=== PATIENT | male | born 1965 | race Caucasian/White ===

== ENCOUNTER 2021-06-16 05:26 | Inpatient (IN) | payer MEDICARE, MEDICAID ==
[~2021-06-16] VITALS: Ht 170.2 cm; Wt 51.3 kg
--- NOTE | 2021-06-16 05:43 | NUR ---
HPI: Pt brought in from [facility] in [place] for oral complications. Pt presented due to sore throat, increasing oral swelling x3 days. Pt able to continue to manage secretions and airway. However, tongue very edematous, difficulty swallowing. Painful, hoarse voice, difficulty talking. Pain concentrated to R side of throat. Exacerbating factors including swallowing, talking, drinking fluids. 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 Records indicate that pt was treated at [facility] w/ 8mg total IV Morphine, 4mg Zofran, 1L NSS Bolus, and 3GM Unasyn. CT scan showed Sialolithiasis w/ submandibular exophytic extension, dx w/ obstructing underneath tongue stones obstructing the lacrimal gland. WBC = 13.4 (concerns for bacterial infection), Lactic 1.3, H&H 15.6/44.2%. COVID negative, FLU Negative. Assessment: Pt alert and oriented x4, GCS 15, able to make needs known. RAKA assessed. Maintaining airway and secretions, RA sats >90%. Pt afebrile upon arrival, not tachycardic. Oral swelling noted, tongue swollen, difficulty annunciating words and phrases. 20G LAC estbalished at prior facility. Pt provided with call angelo, on monitor, denies further needs at this time.
--- NOTE | 2021-06-16 06:49 | NUR ---
Report to BRAYAN Dougherty no further questions at this time.
--- NOTE | 2021-06-16 07:03 | NUR ---
PT resting in bed, call light in reach.
[2021-06-16] MEDS ORDERED: DEXAMETHASONE 4 MG/ML, 1ML IVPush ONE (07:30)
[2021-06-16] MEDS ORDERED: DEXAMETHASONE 4 MG/ML, 1ML ONE ×2 (07:33→09:33)
--- NOTE | 2021-06-16 07:36 | NUR ---
ERMD AT BEDSIDE TO DISCUSS POC.
[2021-06-16 07:53] LABS: BASOPHILS % (AUTO) 1 % (0-1); EOSINOPHILS % (AUTO) 1 % (1-7); LYMPHOCYTES % (AUTO) 24 % (22-44); MEAN CORPUSCULAR HEMOGLOBIN 30.6 pg (27.5-34.5); MEAN CORPUSCULAR HGB CONC 33.9 g/dL (33.2-36.2); MEAN PLATELET VOLUME 7.7 fL (7.4-10.4); MONOCYTES % (AUTO) 10 % (2-9); NEUTROPHILS % (AUTO) 64 % (42-75); PLATELET COUNT 321 x10^3/uL (130-400); RED BLOOD COUNT 4.79 x10^6/uL (4.38-5.82); RED CELL DISTRIBUTION WIDTH 15.2 % (9.4-14.8)
[2021-06-16] MEDS ORDERED: PLEASE ENTER ALLERGIES MC SCH (08:00)
[2021-06-16] MEDS ORDERED: AMPICILLIN/SULBACTAM 3 GM in SODIUM CHLORIDE 0.9% 100 ML IV ONE (08:00)
[2021-06-16 08:05] LABS: ANION GAP 7 mmol/L (5-15); CALCIUM 8.8 mg/dL (8.5-10.1); CHLORIDE 107 mmol/L (98-107); CREATININE 0.83 mg/dL (0.7-1.3)
[2021-06-16] MEDS ORDERED: LIDOCAINE JELLY 2%, 30GM TP ONE (08:30)
[2021-06-16] MEDS ORDERED: LIDOCAINE 4% TOPICAL SOLUTION 50 ML TP ONE (08:30)
[2021-06-16] MEDS ORDERED: LIDOCAINE GEL 2%, 5ML ONE ×2 (08:38→08:45)
[2021-06-16] MEDS ORDERED: LIDOCAINE-MPF 1%, 5ML ONE (08:38)
[2021-06-16] MEDS ORDERED: LIDOCAINE 2%,20 ML JEL.PF.APP MM ONE (08:41)
[2021-06-16] MEDS ORDERED: SODIUM CHLORIDE 0.9% 1,000 ML IV SCH (09:00)
[2021-06-16] MEDS ORDERED: ONDANSETRON 2MG/ML, 2ML IVPush PRN (09:00)
[2021-06-16] MEDS ORDERED: LABETALOL 5MG/ML, 20ML IVPush PRN (09:00)
--- NOTE | 2021-06-16 09:01 | NUR ---
Report to SECURITIES AND REAL ESTATE DIRECTOR. PT transported to OR
[2021-06-16] MEDS ORDERED: MIDAZOLAM 1 MG/ML, 2ML ONE (09:06)
[2021-06-16] MEDS ORDERED: FENTANYL PF 250 MCG/5ML ONE (09:07)
[2021-06-16] MEDS ORDERED: LIDOCAINE/PF 1%, 30ML ONE (09:07)
[2021-06-16] MEDS ORDERED: EPINEPHRINE 1 MG/ML, 1ML ONE (09:07)
[2021-06-16] MEDS ORDERED: PROPOFOL 10 MG/ML, 20ML ONE (09:37)
[2021-06-16] MEDS ORDERED: EPHEDRINE 50 MG/ML, 1ML ONE (09:38)
[2021-06-16] MEDS ORDERED: PHENYLEPHRINE 10 MG/ML ONE (09:40)
[2021-06-16] MEDS ORDERED: PROPOFOL 100 ML IV ONE (10:12)
[2021-06-16] MEDS: DEXAMETHASONE 4 MG/ML, 1ML IVPush SCH ×3 (11:29→23:37)
[2021-06-16] MEDS: AMPICILLIN/SULBACTAM 3 GM in SODIUM CHLORIDE 0.9% 100 ML IV SCH ×2 (11:48→17:37)
[2021-06-16] MEDS: PROPOFOL 100 ML IV PRN ×3 (13:21→21:37)
[2021-06-16] MEDS ORDERED: LACTATED RINGERS 1,000 ML IVBOLUS ONE (14:30)
[2021-06-16] MEDS ORDERED: POTASSIUM CHLORIDE 40 MEQ in SODIUM CHLORIDE 0.9% 500 ML IV ONE (19:30)
[2021-06-16] MEDS ORDERED: HEPARIN 25,000 UNITS/250ML PMX 250 ML IV PRN (19:30)
[2021-06-16] MEDS ORDERED: HEPARIN 5,000 UNITS/ML, 1ML IV ONE (19:30)
[2021-06-16] MEDS ORDERED: HEPARIN 5,000 UNITS/ML, 1ML IV PRN (19:30)
[2021-06-16 19:31] VITALS: BP 108/55
[2021-06-16] MEDS ORDERED: HEPARIN wt. based STROKE protocol MC PRN (20:00)
[2021-06-16] MEDS: HEPARIN 25,000 UNITS/250ML PMX 250 ML IV PRN (20:08)
[2021-06-16] MEDS: SODIUM CHLORIDE 0.9% 1,000 ML IV SCH (20:36)
[2021-06-17] MEDS: AMPICILLIN/SULBACTAM 3 GM in SODIUM CHLORIDE 0.9% 100 ML IV SCH ×6 (00:10→23:29)
[2021-06-17 04:14] LABS: BASOPHILS % (AUTO) 0 % (0-1); EOSINOPHILS % (AUTO) 0 % (1-7); LYMPHOCYTES % (AUTO) 13 % (22-44); MEAN CORPUSCULAR HEMOGLOBIN 30.8 pg (27.5-34.5); MEAN CORPUSCULAR HGB CONC 33.7 g/dL (33.2-36.2); MEAN PLATELET VOLUME 7.9 fL (7.4-10.4); MONOCYTES % (AUTO) 5 % (2-9); NEUTROPHILS % (AUTO) 82 % (42-75); PLATELET COUNT 294 x10^3/uL (130-400); RED BLOOD COUNT 3.85 x10^6/uL (4.38-5.82); RED CELL DISTRIBUTION WIDTH 15.4 % (9.4-14.8)
[2021-06-17 04:27] LABS: ANION GAP 4 mmol/L (5-15); CALCIUM 7.9 mg/dL (8.5-10.1); CHLORIDE 114 mmol/L (98-107)
[2021-06-17 04:32] LABS: ALANINE AMINOTRANSFERASE 17 U/L (12-78); ALKALINE PHOSPHATASE 89 U/L (45-117); BILIRUBIN,TOTAL 0.2 mg/dL (0.2-1.0); CREATININE 0.63 mg/dL (0.7-1.3); TOTAL PROTEIN 6.2 g/dL (6.4-8.2)
[2021-06-17] MEDS: PROPOFOL 100 ML IV PRN ×4 (05:08→22:45)
[2021-06-17] MEDS: DEXAMETHASONE 4 MG/ML, 1ML IVPush SCH ×4 (05:14→22:26)
[2021-06-17] MEDS: PANTOPRAZOLE 40 MG IV IVPush SCH (07:58)
[2021-06-17] MEDS ORDERED: SODIUM CHLORIDE 0.9% 1,000 ML IV SCH (09:00)
[2021-06-17] MEDS: SODIUM CHLORIDE 0.9% 1,000 ML IV SCH ×2 (09:54→17:52)
[2021-06-17] MEDS ORDERED: SCOPOLAMINE 1MG PATCH TD ONE (11:30)
[2021-06-17] MEDS ORDERED: UMEC62.5 INH (16:35)
[2021-06-17] MEDS ORDERED: ASPI81TA45 PO (16:35)
[2021-06-17] MEDS ORDERED: DULO60CA7 PO (16:35)
[2021-06-17] MEDS ORDERED: EMTR1TAB13 PO (16:35)
[2021-06-17] MEDS ORDERED: CLOP75TA PO (16:35)
[2021-06-17] MEDS ORDERED: LIDO5CRE3 TP (16:35)
[2021-06-17] MEDS ORDERED: MORP30TA81 PO (16:35)
[2021-06-17] MEDS ORDERED: DOCU-131 PO (16:35)
[2021-06-17] MEDS ORDERED: RALT600T PO (16:35)
[2021-06-17] MEDS ORDERED: ATOR-2 PO (16:35)
[2021-06-17] MEDS ORDERED: HYDR-3248 PO (16:35)
[2021-06-17] MEDS ORDERED: APIX5TAB PO (16:35)
[2021-06-17] MEDS ORDERED: PREG200C PO (16:35)
[2021-06-17] MEDS ORDERED: GLYCOPYRROLATE 0.2MG/1ML, 5ML IVPush ONE (21:30)
[2021-06-17] MEDS: morphine SULFATE 10 MG/ML, 1ML IVPush PRN (22:26)
[2021-06-17] MEDS: HEPARIN 25,000 UNITS/250ML PMX 250 ML IV PRN (23:25)
[2021-06-18] MEDS: GLYCOPYRROLATE 0.2MG/1ML, 5ML IVPush PRN ×3 (00:51→21:19)
[2021-06-18] MEDS: SODIUM CHLORIDE 0.9% 1,000 ML IV SCH ×3 (02:12→19:37)
[2021-06-18] MEDS: PROPOFOL 100 ML IV PRN ×4 (04:46→21:58)
[2021-06-18] MEDS: DEXAMETHASONE 4 MG/ML, 1ML IVPush SCH ×4 (04:50→23:36)
[2021-06-18] MEDS: AMPICILLIN/SULBACTAM 3 GM in SODIUM CHLORIDE 0.9% 100 ML IV SCH ×4 (05:42→23:37)
[2021-06-18 05:53] LABS: BASOPHILS % (AUTO) 0 % (0-1); EOSINOPHILS % (AUTO) 0 % (1-7); LYMPHOCYTES % (AUTO) 15 % (22-44); MEAN CORPUSCULAR HEMOGLOBIN 30.9 pg (27.5-34.5); MEAN CORPUSCULAR HGB CONC 33.8 g/dL (33.2-36.2); MEAN PLATELET VOLUME 8.5 fL (7.4-10.4); MONOCYTES % (AUTO) 5 % (2-9); NEUTROPHILS % (AUTO) 80 % (42-75); PLATELET COUNT 319 x10^3/uL (130-400); RED CELL DISTRIBUTION WIDTH 15.7 % (9.4-14.8)
[2021-06-18 05:58] LABS: ANION GAP 6 mmol/L (5-15); CALCIUM 7.5 mg/dL (8.5-10.1); CHLORIDE 115 mmol/L (98-107)
[2021-06-18 06:00] LABS: CREATININE 0.59 mg/dL (0.7-1.3)
[2021-06-18] MEDS: PANTOPRAZOLE 40 MG IV IVPush SCH (06:39)
[2021-06-18] MEDS ORDERED: ONDANSETRON 2MG/ML, 2ML IVPush PRN (08:00)
[2021-06-18] MEDS ORDERED: morphine SULFATE 10 MG/ML, 1ML IVPush PRN (08:00)
[2021-06-18] MEDS ORDERED: FENTANYL PF 100 MCG/2ML IV PRN (08:00)
[2021-06-18] MEDS ORDERED: MEPERIDINE/PF 25MG/0.5ML IVPush PRN (08:00)
[2021-06-18] MEDS ORDERED: HYDROmorphone 1 MG/ML, 1ML INJ IVPush PRN (08:00)
[2021-06-18] MEDS ORDERED: PROMETHAZINE 25 MG/ML, 1ML IVPush PRN (08:00)
[2021-06-18] MEDS ORDERED: MIDAZOLAM 1 MG/ML, 2ML ONE ×2 (08:53→09:42)
[2021-06-18] MEDS ORDERED: FENTANYL PF 100 MCG/2ML ONE (08:53)
[2021-06-18] MEDS ORDERED: EPINEPHRINE 1 MG/ML, 1ML ONE (08:59)
[2021-06-18] MEDS ORDERED: LIDOCAINE/PF 1%, 30ML ONE (08:59)
[2021-06-18] MEDS: morphine SULFATE 10 MG/ML, 1ML IVPush PRN (19:46)
[2021-06-19] MEDS: GLYCOPYRROLATE 0.2MG/1ML, 5ML IVPush PRN ×3 (01:01→15:10)
[2021-06-19] MEDS: morphine SULFATE 10 MG/ML, 1ML IVPush PRN ×2 (01:06→07:31)
[2021-06-19] MEDS: SODIUM CHLORIDE 0.9% 1,000 ML IV SCH (04:04)
[2021-06-19] MEDS: PROPOFOL 100 ML IV PRN (04:04)
[2021-06-19] MEDS: PANTOPRAZOLE 40 MG IV IVPush SCH (05:27)
[2021-06-19] MEDS: AMPICILLIN/SULBACTAM 3 GM in SODIUM CHLORIDE 0.9% 100 ML IV SCH ×4 (05:27→23:38)
[2021-06-19] MEDS: DEXAMETHASONE 4 MG/ML, 1ML IVPush SCH ×4 (05:27→23:38)
[2021-06-19] MEDS: HEPARIN 25,000 UNITS/250ML PMX 250 ML IV PRN (06:19)
[2021-06-19 06:29] LABS: BASOPHILS % (AUTO) 0 % (0-1); EOSINOPHILS % (AUTO) 0 % (1-7); LYMPHOCYTES % (AUTO) 24 % (22-44); MEAN CORPUSCULAR HEMOGLOBIN 31.3 pg (27.5-34.5); MEAN CORPUSCULAR HGB CONC 34.3 g/dL (33.2-36.2); MEAN PLATELET VOLUME 8.4 fL (7.4-10.4); MONOCYTES % (AUTO) 9 % (2-9); NEUTROPHILS % (AUTO) 67 % (42-75); PLATELET COUNT 310 x10^3/uL (130-400); RED BLOOD COUNT 3.52 x10^6/uL (4.38-5.82); RED CELL DISTRIBUTION WIDTH 15.8 % (9.4-14.8)
[2021-06-19 06:45] LABS: ANION GAP 6 mmol/L (5-15); CALCIUM 7.8 mg/dL (8.5-10.1); CHLORIDE 115 mmol/L (98-107)
[2021-06-19 06:48] LABS: CREATININE 0.56 mg/dL (0.7-1.3)
[2021-06-19] MEDS: OXYcodone IR 5MG TABLET PO PRN (20:57)
[2021-06-20] MEDS: GLYCOPYRROLATE 0.2MG/1ML, 5ML IVPush PRN ×2 (01:11→05:31)
[2021-06-20 03:26] LABS: BASOPHILS % (AUTO) 0 % (0-1); EOSINOPHILS % (AUTO) 0 % (1-7); LYMPHOCYTES % (AUTO) 25 % (22-44); MEAN CORPUSCULAR HEMOGLOBIN 31.4 pg (27.5-34.5); MEAN CORPUSCULAR HGB CONC 34.2 g/dL (33.2-36.2); MEAN PLATELET VOLUME 8.3 fL (7.4-10.4); MONOCYTES % (AUTO) 7 % (2-9); NEUTROPHILS % (AUTO) 68 % (42-75); PLATELET COUNT 345 x10^3/uL (130-400); RED BLOOD COUNT 3.67 x10^6/uL (4.38-5.82); RED CELL DISTRIBUTION WIDTH 15.5 % (9.4-14.8)
[2021-06-20 03:34] LABS: ANION GAP 4 mmol/L (5-15); CALCIUM 8.2 mg/dL (8.5-10.1); CHLORIDE 112 mmol/L (98-107); CREATININE 0.69 mg/dL (0.7-1.3)
[2021-06-20] MEDS: DEXAMETHASONE 4 MG/ML, 1ML IVPush SCH ×2 (05:31→11:55)
[2021-06-20] MEDS: AMPICILLIN/SULBACTAM 3 GM in SODIUM CHLORIDE 0.9% 100 ML IV SCH ×2 (05:31→11:55)
[2021-06-20] MEDS ORDERED: BISACODYL 10 MG SUPP PR PRN (09:00)
[2021-06-20] MEDS ORDERED: LACTULOSE 20 GM/30 ML UDC PO PRN (09:00)
[2021-06-20] MEDS ORDERED: AMIODARONE 200 MG TABLET PO SCH (09:00)
[2021-06-20 09:33] LABS: CHOL/HDL RATIO 3.5; LDL/HDL RATIO 1.8 (0.5-3.0)
[2021-06-20] MEDS: DOCUSATE 100 MG CAPSULE PO SCH (10:09)
[2021-06-20] MEDS: HEPARIN 25,000 UNITS/250ML PMX 250 ML IV PRN (10:28)
[2021-06-20] MEDS: OXYcodone IR 5MG TABLET PO PRN ×2 (10:33→21:06)
[2021-06-20] MEDS ORDERED: HEPARIN wt. based STROKE protocol MC PRN (13:57)
[2021-06-20 14:35] VITALS: BP 123/66
[2021-06-20] MEDS: DEXAMETHASONE 4 MG TABLET PO SCH (18:22)
[2021-06-20 20:30] VITALS: BP 137/67
[2021-06-20] MEDS: AMOXICILLIN/CLAV 875-125MG TABLET PO SCH (21:05)
[2021-06-20] MEDS: ATORVASTATIN 40 MG TABLET PO SCH (21:05)
[2021-06-20] MEDS: SENNA/DOCUSATE TABLET PO SCH (21:06)
[2021-06-20] MEDS: APIXABAN 5 MG TABLET PO SCH (21:06)
[2021-06-21 02:00] VITALS: BP 132/66
[2021-06-21] MEDS: GLYCOPYRROLATE 0.2MG/1ML, 5ML IVPush PRN (04:17)
[2021-06-21 05:20] VITALS: BP 122/57
[2021-06-21] MEDS ORDERED: METOPROLOL SUCCINATE 25 MG TAB.ER.24H PO SCH (06:00)
[2021-06-21] MEDS: DOCUSATE 100 MG CAPSULE PO SCH (09:53)
[2021-06-21] MEDS: APIXABAN 5 MG TABLET PO SCH ×2 (09:53→22:08)
[2021-06-21] MEDS: DEXAMETHASONE 4 MG TABLET PO SCH ×3 (09:53→18:12)
[2021-06-21] MEDS: AMOXICILLIN/CLAV 875-125MG TABLET PO SCH ×2 (09:53→22:08)
[2021-06-21 09:55] VITALS: BP 115/54
[2021-06-21] MEDS: OXYcodone IR 5MG TABLET PO PRN ×2 (10:03→22:10)
[2021-06-21 15:30] VITALS: BP 130/68
[2021-06-21 20:00] VITALS: BP 125/72
[2021-06-21] MEDS: SENNA/DOCUSATE TABLET PO SCH (22:08)
[2021-06-21] MEDS: ATORVASTATIN 40 MG TABLET PO SCH (22:08)
[2021-06-21 22:14] VITALS: BP 125/72
[2021-06-22 01:58] VITALS: BP 135/86
[2021-06-22 05:52] LABS: BASOPHILS % (AUTO) 0 % (0-1); EOSINOPHILS % (AUTO) 0 % (1-7); LYMPHOCYTES % (AUTO) 30 % (22-44); MEAN CORPUSCULAR HEMOGLOBIN 31.3 pg (27.5-34.5); MEAN CORPUSCULAR HGB CONC 34.5 g/dL (33.2-36.2); MEAN PLATELET VOLUME 8.2 fL (7.4-10.4); MONOCYTES % (AUTO) 9 % (2-9); NEUTROPHILS % (AUTO) 61 % (42-75); PLATELET COUNT 423 x10^3/uL (130-400); RED BLOOD COUNT 4.77 x10^6/uL (4.38-5.82); RED CELL DISTRIBUTION WIDTH 14.8 % (9.4-14.8)
[2021-06-22 06:03] LABS: CHLORIDE 103 mmol/L (98-107)
[2021-06-22 06:09] LABS: ANION GAP 8 mmol/L (5-15); CALCIUM 9.2 mg/dL (8.5-10.1); CREATININE 0.83 mg/dL (0.7-1.3)
[2021-06-22] MEDS: DOCUSATE 100 MG CAPSULE PO SCH (08:15)
[2021-06-22] MEDS: AMOXICILLIN/CLAV 875-125MG TABLET PO SCH (08:15)
[2021-06-22] MEDS: DEXAMETHASONE 4 MG TABLET PO SCH ×2 (08:15→12:11)
[2021-06-22] MEDS: APIXABAN 5 MG TABLET PO SCH (08:15)
[2021-06-22 08:18] VITALS: BP 110/73
[2021-06-22 12:13] VITALS: BP 115/69
[2021-06-22] MEDS ORDERED: METH4TAB2 PO ×3 (12:32→16:54)
[2021-06-22] MEDS ORDERED: AMOX1TAB12 PO ×3 (12:32→16:54)
[2021-06-22] MEDS ORDERED: LACT1CAP35 PO ×3 (12:32→16:54)
[2021-06-22] MEDS: OXYcodone IR 5MG TABLET PO PRN (15:46)
== END 2021-06-22 17:30 | disposition home health service (06) | DRG 139 ==
LOC: ED 06:15 → EDIP 08:27 → UNDOADMIN 08:27 → CCU 09:46 → 5SO 06-20 12:27
PROVIDERS: ADMIT Internal Medicine; ATTEND Internal Medicine
PROC: 0BH17EZ Insertion of Endotracheal Airway into Trachea, Via Natural or Artificial Opening (ICD-10-PCS; 2021-06-16)
PROC: 5A1945Z Respiratory Ventilation, 24-96 Consecutive Hours (ICD-10-PCS; 2021-06-16)
PROC: 0CCG0ZZ Extirpation of Matter from Right Submaxillary Gland, Open Approach (ICD-10-PCS; 2021-06-18)
PROC: 0CC Mouth and Throat, Extirpation (ICD-10-PCS; principal; 2021-06-18 09:00)
DX: K11.20 Sialoadenitis, unspecified (principal); J96.00 Acute respiratory failure, unspecified whether with hypoxia or hypercapnia; K12.2 Cellulitis and abscess of mouth; D68.59 Other primary thrombophilia; E87.1 Hypo-osmolality and hyponatremia; Z99.11 Dependence on respirator [ventilator] status; I82.401 Acute embolism and thrombosis of unspecified deep veins of right lower extremity; K11.3 Abscess of salivary gland; K11.5 Sialolithiasis; E78.5 Hyperlipidemia, unspecified; E87.6 Hypokalemia; G89.29 Other chronic pain; I10 Essential (primary) hypertension; Z21 Asymptomatic human immunodeficiency virus [HIV] infection status; I48.0 Paroxysmal atrial fibrillation; I73.9 Peripheral vascular disease, unspecified; I27.20 Pulmonary hypertension, unspecified; Z20.822 Contact with and (suspected) exposure to COVID-19; Z89.611 Acquired absence of right leg above knee; Z95.5 Presence of coronary angioplasty implant and graft; Z87.891 Personal history of nicotine dependence; Z87.11 Personal history of peptic ulcer disease; Z89.511 Acquired absence of right leg below knee; Z86.711 Personal history of pulmonary embolism; Z86.718 Personal history of other venous thrombosis and embolism; Z82.49 Family history of ischemic heart disease and other diseases of the circulatory system; Z79.899 Other long term (current) drug therapy; Z79.02 Long term (current) use of antithrombotics/antiplatelets; Z79.01 Long term (current) use of anticoagulants; Z78.1 Physical restraint status; I25.2 Old myocardial infarction
CPT/HCPCS: 36415; 36600; 70491; 71045; 80048; 80053; 80061; 82803; 83735; 84443; 85025; 85520; 86361; 87040; 87081; 87536; 87635; 88300; 93005; 93306; 93356; 93880; 94002; 94003; 96374; 96375; 99292; G0378; J0171; J0295; J1100; J2250; J2704; J3010; J3480; C9113; J2270; J2370; J7030; J7040; J7120